=== PATIENT | female | born 1975 | race Two or more races ===

== ENCOUNTER 2017-04-11 23:36 | Emergency (ER) | payer SELFPAY ==
[2017-04-11 23:59] LABS: BILIRUBIN,URINE NEGATIVE (NEGATIVE); PH,URINE 6.5 PH (5.0-7.5)
[2017-04-12 00:01] LABS: HCG UR QUAL NEGATIVE; UA w/ MICROSCOPIC CHARGE YES
[2017-04-12 00:08] LABS: UR CULTURE IF IND NOT INDICATED
--- NOTE | 2017-04-12 01:31 | ED Physician Documentation ---
PD HPI FEMALE - Stated complaint Stated Complaint: FEMALE - Chief complaint Chief Complaint: General - History obtained from History obtained from: Patient, Family - History of Present Illness Timing - onset: How many days ago (2) Timing - duration: Days (2) Timing - details: Gradual onset, Still present Associated symptoms: Vaginal pain, Genital sore/lesion, Dysuria. No: Fever Contributing factors: No: , control Similar symptoms before: Has not had sx before Recently seen: Clinic (Seen in the clinic at [facility] today and prescribed fluconazole.) - Additional information Additional information: 41 y/o female with vaginal itching was seen at [facility] today and placed on to fluconazole for yeast vaginitis. Tonight her itching was so bad that she could not sleep and she has had her son take her here to the ED. She has had diabetes and was on some medication at one time but she has was told she could stop that medication and she does not test her sugars. She has been under some stress today with a daughter that is going away to college. Review of Systems Constitutional: denies: Fever, Chills, Myalgias Eyes: denies: Decreased vision Ears: denies: Ear pain Nose: denies: Congestion Throat: denies: Sore throat Cardiac: denies: Chest pain / pressure Respiratory: denies: Dyspnea, Cough GI: denies: Abdominal Pain, Nausea, Vomiting : reports: Dysuria, Frequency, Discharge, Other (vagnial itching) Skin: reports: Rash Musculoskeletal: denies: Neck pain, Back pain, Extremity pain Neurologic: denies: Generalized weakness, Focal weakness, Numbness PD PAST MEDICAL HISTORY - Present Medications Home Medications: Ambulatory Orders Medication Instructions Recorded Confirmed No Known Home Medications [No 04/11/17 04/11/17 Known Home Medications] - Allergies Allergies/Adverse Reactions: Allergies Allergy/AdvReac Type Severity Reaction Status Date / Time No Known Drug Allergies Allergy Verified 04/11/17 23:41 PD ED PE NORMAL - Vitals Vital signs reviewed: Yes (hypertensive ) - General General: No acute distress, Well developed/nourished - HEENT HEENT: Atraumatic, PERRL, EOMI - Neck Neck: Supple, no meningeal sign - Cardiac Cardiac: RRR, No murmur - Respiratory Respiratory: No respiratory distress, Clear bilaterally - Abdomen Abdomen: Soft, Non tender - Female Female : Digital Imaging Specialist present (Marguerite), Other (There is erythema and marked tenderness to the labia reproducing the patients symptoms ) - Back Back: No CVA TTP, No spinal TTP - Derm Derm: Normal color, Warm and dry, No rash - Extremities Extremities: No deformity, No edema Results - Vitals Vitals: Vital Signs - 24 hr 04/11/17 04/12/17 23:39 02:39 Temperature 36.5 C Heart Rate 74 58 L Respiratory 16 14 Rate Blood Pressure 138/84 H 119/71 O2 Saturation 100 100 - Labs Labs: Microbiology 04/12/17 01:25 ALEJANDRINA Preparation - Final Fluid - Vaginal Laboratory Tests 04/11/17 04/12/17 23:49 01:37 POC Whole Bld Glucose 207 H Urine Color YELLOW Urine Clarity CLEAR Urine pH 6.5 Ur Specific [place] <=1.005 Urine Protein NEGATIVE Urine Glucose (UA) NEGATIVE Urine Ketones NEGATIVE Urine Occult Blood SMALL H Urine Nitrite NEGATIVE Urine Bilirubin NEGATIVE Urine Urobilinogen 0.2 (NORMAL) Ur Leukocyte Esterase SMALL H Urine RBC 6-10 H Urine WBC 4-5 Ur Squamous Epith Cells MANY Squamous H Urine Bacteria Few Ur Microscopic Review INDICATED Urine Culture Comments NOT INDICATED Urine HCG, Qual NEGATIVE PD MEDICAL DECISION MAKING - ED course Complexity details: reviewed old records, reviewed results, re-evaluated patient , considered differential, d/w patient, d/w family ED course: 41 y/o female with yeast vaginitis with intolerable itching. She was seen in the clinic this morning and started on fluconazole and tonight the itching is so bad she has come to the ED. On exam she has irritation consistent with yeast vaginitis. A ALEJANDRINA sample was taken but after I reviewed the paperwork from the patient's visit earlier today showing yeast elements present in the urine specimen the test was not ordered. A random blood glucose was 207. I have recommended she follow up with her primary about the diabetes and tonight we provided some hydrocortisone cream for symptomatic relief. Departure - Departure Disposition: 01 Home, Self Care Clinical Impression: Yeast infection involving the vagina and surrounding area, Diabetes mellitus, new onset Condition: Stable Instructions: ED Vaginal Infec Fungal Lina, Diabetes Type 2, Diabetes Carbs Fats Protein Follow-Up: [facility] [Provider Group] Print Language: Yakut Discharge Date/Time: 04/12/17 02:44
[2017-04-12] MEDS ORDERED: MICONAZOLE 200 MG VAGINAL SUPP VG STA (01:44)
[2017-04-12] MEDS ORDERED: HYDROCORTISONE 1% CREAM 28 GM TUBE TOP STA (02:23)
[2017-04-12 02:44] VITALS: BP 119/71
== END 2017-04-12 02:44 | disposition home or self-care (01) ==
LOC: ED 23:36
DX: B37.3 Candidiasis of vulva and vagina (principal); E11.9 Type 2 diabetes mellitus without complications
CPT/HCPCS: 81001; 81025; 87220; 99283; 99284; A9270; 81003; 87086

== ENCOUNTER 2018-03-04 19:22 | Outpatient (CLI) | payer SELFPAY | END 2018-03-04 19:23 | disposition short-term general hospital (02) | LOC: EMS 19:22 | PROVIDERS: ATTEND Surgery | DX: R07.9 Chest pain, unspecified (principal); R11.0 Nausea | CPT/HCPCS: A0425; A0433 ==

== ENCOUNTER 2019-11-14 21:13 | Outpatient (CLI) | payer SELFPAY | END 2019-11-14 23:59 | disposition critical access hospital (66) | LOC: EMS 21:13 | PROVIDERS: ATTEND Surgery | DX: R07.9 Chest pain, unspecified (principal); R05 Cough | CPT/HCPCS: A0425; A0427 ==

== ENCOUNTER 2019-11-14 21:26 | Inpatient (IN) | payer SELFPAY ==
[2019-11-14] MEDS ORDERED: MORPHINE 10 MG/ML VIAL IVP STA (21:49)
[2019-11-14] MEDS ORDERED: METOPROLOL TARTRATE 50 MG TABLET PO STA (21:49)
--- NOTE | 2019-11-14 21:59 | ED Physician Documentation ---
PD HPI CHEST PAIN - Stated complaint Stated Complaint: CP, COUGH - Chief complaint Chief Complaint: Cardiac - History obtained from History obtained from: Family (44-year-old woman who has a history of coronary disease per the son. Of note the son was used for a manager sales as she declined a professional biomedical engineering internship. She has been having some episodic chest pain the last 3 days which was worse today and constant since 2 PM. It is a pain that starts in both arms and then radiates up into the anterior chest and back. It is severe at times and was especially sharp earlier this afternoon. It sounds like she is had some chest pain episodes and per the description had an angiography about a year ago at [facility], had an angioplasty done, and was told at some point she might need a bypass operation. She has been short of breath and decreased energy for the last 3 days, but the family actually thinks that is due to the snow because she cannot go outside and there is also been some family stress which the family thinks is also causative. No pedal edema or calf pain.) Review of Systems Ten Systems: 10 systems reviewed and negative Constitutional: denies: Fever, Chills Nose: denies: Rhinorrhea / runny nose, Congestion Cardiac: reports: Chest pain / pressure, Palpitations (She feels like her heart rate is slow at night). denies: Pedal edema, Calf pain Respiratory: reports: Dyspnea, Cough GI: denies: Abdominal Pain, Nausea, Vomiting, Diarrhea PD PAST MEDICAL HISTORY - Past Medical History Past Medical History: Yes Cardiovascular: Hypertension, Angina - Past Surgical History Past Surgical History: Yes Cardiovascular: Angioplasty - Present Medications Home Medications: Ambulatory Orders Medication Instructions Recorded Confirmed Amlodipine Besylate 10 mg PO DAILY 11/14/19 11/14/19 Atorvastatin Calcium 10 mg PO QPM 11/14/19 11/14/19 Isosorbide Mononitrate 10 mg PO DAILY 11/14/19 11/14/19 Nitroglycerin 0.4 mg PO DAILY 11/14/19 11/14/19 Sertraline HCl 25 mg PO DAILY 11/14/19 11/14/19 - Allergies Allergies/Adverse Reactions: Allergies Allergy/AdvReac Type Severity Reaction Status Date / Time No Known Drug Allergies Allergy Verified 11/14/19 21:37 - Social History Does the pt smoke?: Yes Smoking Status: Current every day smoker Does the pt drink ETOH?: No Does the pt have substance abuse?: No - Immunizations Immunizations are current?: Yes - POLST Patient has POLST: No PD ED PE NORMAL - Vitals Vital signs reviewed: Yes - General General: Alert and oriented X 3, No acute distress - HEENT HEENT: PERRL, EOMI - Neck Neck: Supple, no meningeal sign, No bony TTP - Cardiac Cardiac: RRR, No murmur - Respiratory Respiratory: No respiratory distress, Clear bilaterally - Abdomen Abdomen: Normal bowel sounds, Soft, Non tender - Back Back: No CVA TTP, No spinal TTP - Derm Derm: Normal color, Warm and dry - Extremities Extremities: No edema, No calf tenderness / cord - Neuro Neuro: Alert and oriented X 3, Normal speech Results - Vitals Vitals: Vital Signs - 24 hr 11/14/19 11/14/19 11/14/19 21:28 21:30 21:44 Temperature 37.2 C Heart Rate 88 79 Respiratory 12 18 Rate Blood Pressure 145/83 H 120/77 Blood Pressure 120/77 [Right] O2 Saturation 98 100 11/14/19 11/14/19 11/14/19 22:03 22:22 22:30 Temperature Heart Rate 72 65 69 Respiratory 20 15 17 Rate Blood Pressure 125/73 125/73 123/80 Blood Pressure [Right] O2 Saturation 98 99 99 11/14/19 11/14/19 11/14/19 22:45 22:50 23:25 Temperature Heart Rate 62 72 60 Respiratory 19 14 17 Rate Blood Pressure 123/80 124/73 122/74 Blood Pressure [Right] O2 Saturation 99 99 99 11/15/19 11/15/19 00:00 00:49 Temperature 37.2 C Heart Rate 62 52 L Respiratory 18 17 Rate Blood Pressure 125/60 126/70 Blood Pressure [Right] O2 Saturation 98 98 Oxygen O2 Source Room air - EKG (time done) 2131 Rate: Rate (enter#) (73), Other (this one with more pain) Rhythm: NSR [place]: Normal Intervals: Normal ND QRS: Normal Ischemia: Normal ST segments Computer interpretation: Agree with computer 2140 Rate: Rate (enter#) (77) Rhythm: NSR [place]: Normal Intervals: Normal ND QRS: Normal Ischemia: Normal ST segments Compare to prior EKG: Unchanged from prior EKG Computer interpretation: Agree with computer - Labs Labs: Laboratory Tests 11/14/19 11/14/19 11/14/19 21:59 21:59 21:59 WBC 7.7 RBC 4.41 Hgb 10.6 L Hct 34.2 L MCV 77.6 L MCH 24.0 L MCHC 31.0 L RDW 16.3 H Plt Count 247 MPV 9.5 Neut # (Auto) 4.9 Lymph # (Auto) 2.0 [place] # (Auto) 0.6 Eos # (Auto) 0.1 Baso # (Auto) 0.0 Absolute Nucleated RBC 0.00 Nucleated RBC % 0.0 Sodium 139 Potassium 3.7 Chloride 101 Carbon Dioxide 28 Anion Gap 10.0 BUN 11 Creatinine 0.7 Estimated GFR (MDRD) 92 Glucose 197 H Calcium 9.1 Total Bilirubin 0.6 AST 18 ALT 22 Alkaline Phosphatase 75 Troponin I High Sens 3.7 Total Protein 7.0 Albumin 4.0 Globulin 3.0 Albumin/Globulin Ratio 1.3 Lipase 36 PD MEDICAL DECISION MAKING - ED course ED course: During my initial evaluation she started to complain of more pain and a second EKG was done without any interval or ischemic changes. She received aspirin prior to arrival. Summary and cath report from [facility] 03/16 red and revd, Small OM Angioplatied but spams thought to be causative of prior sx. Here neg findings. Feel that sx d/t med nocplaiance and family feels stress due familty an weahter. Will place in obs for Britton All EMR times questionable d/t downtime. Departure - Departure Disposition: ED Place in Observation Clinical Impression: Chest pain Condition: Stable
[2019-11-14 22:03] LABS: BASOPHILS % (AUTO) 0.5 %; EOSINOPHILS # (AUTO) 0.1 10^3/uL (0.0-0.7); EOSINOPHILS % (AUTO) 1.8 %; HGB - HEMOGLOBIN 10.6 g/dL (12.0-16.0); LYMPHOCYTES % (AUTO) 26.5 %; MEAN CORPUSCULAR VOLUME 77.6 fL (81.0-99.0); MEAN PLATELET VOLUME 9.5 fL (7.9-10.8); MONOCYTES # (AUTO) 0.6 10^3/uL (0.0-1.0); MONOCYTES % (AUTO) 7.3 %; NEUTROPHILS # (AUTO) 4.9 10^3/uL (1.5-6.6); NEUTROPHILS % (AUTO) 63.5 %; PLT - PLATELET COUNT 247 10^3/uL (130-450); RED BLOOD COUNT 4.41 10^6/uL (4.20-5.40); RED CELL DISTRIBUTION WIDTH 16.3 % (12.0-15.0); WHITE BLOOD COUNT 7.7 x10^3/uL (4.8-10.8)
[2019-11-14 22:23] LABS: ALBUMIN/GLOBULIN RATIO 1.3 (1.0-2.2); BILIRUBIN,TOTAL 0.6 mg/dL (0.2-1.0); CALCIUM 9.1 mg/dL (8.5-10.3); CREATININE 0.7 mg/dL (0.4-1.0)
[2019-11-14] MEDS ORDERED: ISOSORBIDE MONONITRATE ER 30 MG TABLET PO ONE (22:43)
[2019-11-14] MEDS ORDERED: NITROGLYCERIN SL 0.4 MG TABLET SL ONE (22:43)
--- NOTE | 2019-11-14 22:49 | XRAY Report ---
Reason: chest pain Procedure Date: 11/14/2019 Accession Number: [id number] / [id number] Procedure: XR - Chest 1 View X-Ray CPT Code: 99026 Final Report FULL RESULT: EXAM: CHEST RADIOGRAPHY EXAM DATE: 11/14/2019 10:17 PM. CLINICAL HISTORY: Chest pain. Shortness of breath and cough. COMPARISON: None. TECHNIQUE: 1 view. FINDINGS: Lungs/Pleura: No focal opacities evident. No pleural effusion. No pneumothorax. Mediastinum: Within exam limitations, the cardiomediastinal contour is normal. Other: None. IMPRESSION: Normal single view chest. RADIA
[2019-11-15] MEDS ORDERED: HYDROcod/ACETAM 10 MG/325 MG TABLET PO PRN ×2 (00:29→01:54)
[2019-11-15] MEDS ORDERED: SODIUM CHLORIDE FLUSH 0.9% 10 ML SYRINGE IVP PRN (00:29)
--- NOTE | 2019-11-15 00:35 | HISTORY & PHYSICAL EXAMINATION ---
Chief Complaint - Chief Complaint Chief Complaint: left sided chest pain History of Present Illness - Admitted From Admitted From:: [facility] ED - History Obtained From Records Reviewed: yes History obtained from: patient and son - History of Present Illness HPI Comment/Other: Patient is a 44 y/o female who is Belarusian speaking only, with history of CAD, coronary vasospasm, DM and hyperlipidemia who presented to the ED with complain of left-sided chest pain which she described as a pressure and left arm pain. Her symptoms have been going on intermittently for the past 3 day and last about 3 minutes each time. She reports dyspnea sometimes when the pain recurs. She usually gets relief with nitroglycerin though a mild residual arm pain lingers. Today around 2pm she began experiencing the pain again while at rest. She took nitroglycerin tab four times with no significant change so EMS was called. Of note, she ran out of her imdur and amlodipine today thus did not take them. She reports using the treadmill about three times a week for 20-25 minutes each time. But she has not been able to do so in the 3 days that she has been having the chest pain. She reported nausea but no vomiting. She denied fever but reported chills. She had an EKG X2 which were unremarkable and Troponin has been negative so far. She is being admitted for further work up. She underwent a left heart cath on 03/05/2018 at [facility] after she had presented to the [facility] ED with chest pain and was transferred there for concern of possible STEMI. She was only found to have a small obtuse marginal branch which was totally occluded but felt not to be the main reason for her symptoms. This was balloon angioplastied. She was also found to have severe vasospams in the distal LAD and distal RCA which were thought to the the most likely contributors to her symptoms. As a result she was started on the nitrates and calcium channel ariel. History - Past Medical History Cardiovascular: reports: High cholesterol, Coronary artery disease, Angina, Other (coronary vasospasm) Endocrine/Autoimmune: reports: Type 2 diabetes Psych: reports: Depression, Anxiety MRSA Hx?: No Other Past Medical History: Anemia - Past Surgical History /BALLROOM DANCER: reports: Tubal ligation, Other (ovarian cyst resection) Cardiovascular: reports: Cardiac catheterization, Angioplasty - Family & Social History Family History Comment/Other: cardiac disease in father and mother Social History Notes: She lives with her family at home. She does not smoke, use alocohol or illicit drugs. - POLST Patient has POLST: No POLST Status: Full Code Meds/Allgy - Home Medications Home Medications: Ambulatory Orders Medication Instructions Recorded Confirmed Amlodipine Besylate 10 mg PO DAILY 11/14/19 11/14/19 Atorvastatin Calcium 10 mg PO QPM 11/14/19 11/14/19 Isosorbide Mononitrate 10 mg PO DAILY 11/14/19 11/14/19 Nitroglycerin 0.4 mg PO DAILY 11/14/19 11/14/19 Sertraline HCl 25 mg PO DAILY 11/14/19 11/14/19 - Allergies Allergies/Adverse Reactions: Allergies Allergy/AdvReac Type Severity Reaction Status Date / Time No Known Drug Allergies Allergy Verified 11/14/19 21:37 Review of Systems - Constitutional Constitutional: reports: Chills. denies: Fatigue, Fever - Eyes Eyes: denies: Pain, Dipolpia - Ears, Nose & Throat Ears, Nose & Throat: denies: Vertigo, Sore throat - Cardiovascular Cariovascular: reports: Chest pain, Decr. exercise tolerance. denies: Irregular heart rate, Palpitations, Edema, Lightheadedness, Syncope - Respiratory Respiratory: reports: SOB at rest. denies: Cough, Sputum production, Wheezing - Gastrointestinal Gastrointestinal: reports: Nausea. denies: Abdominal pain, Abdominal distention, Vomiting - Genitourinary Genitourinary: denies: Dysuria, Frequency, Urgency, Hematuria - Musculoskeletal Musculoskeletal: reports: Muscle pain - Integumentary Integumentary: denies: Rash, Pruritis - Neurological Neurological: denies: General weakness, Focal weakness, Headache, Dizziness - Psychiatric Psychiatric: reports: Depression, Anxiety - Endocrine Endocrine: denies: Polyuria, Polydypsia - Hematologic/Lymphatic Hematologic/Lymphatic: reports: Anemia. denies: Bruising, Petechiae Prior Level of Functionality: She is independent of activities of daily living Exam - Vital Signs Vital Signs: Vital Signs x48h Temp Pulse Resp BP BP Pulse Ox 11/14/19 22:03 72 20 125/73 98 11/14/19 21:44 79 18 120/77 100 11/14/19 21:30 120/77 11/14/19 21:28 37.2 C 88 12 145/83 H 98 - Physical Exam General Appearance: positive: Alert, Moderate distress Eyes Bilateral: positive: PERRL, EOMI ENT: positive: ENT inspection nml, No signs of dehydration Neck: positive: Nml inspection, No JVD, Trachea midline Respiratory: positive: Chest non-tender, No respiratory distress. negative: Wheezes, Rales, Rhonchi Cardiovascular: positive: Regular rate & rhythm Abdomen: positive: Non-tender, No organomegaly, Nml bowel sounds, No distention. negative: Guarding, Rebound Back: positive: Nml inspection Skin: positive: Color nml, No rash, Warm Extremities: positive: Non-tender, Full ROM, Nml appearance, No pedal edema Neurologic/Psychiatric: positive: Oriented x3, Mood/affect nml Conclusion/Plan - Problem List (1) Chest pain Conclusion/Plan: Likely multifactorial 2/2 coronary vasospasm. Worsened by not taking medications today Suspect a component of muskuloskeletal pain as well EKG unremarkable X2. Troponin negative so far. Will trend trop X2 more Will consider stress test if troponins negative Full dose aspirin. Resume imdur and amlodipine Pain management with morphine. Sublingual nitro prn. Patient given a dose om metoprolol 25mg po in the ED. Will not continue for now (2) Hyperlipidemia Conclusion/Plan: On atorvastatin 10mg po qpm (3) Diabetes mellitus Conclusion/Plan: Patient was taken off metformin 3 months ago by PCP She has since been using a diet/exercising approach Last HgA1C was 7.2. This will be repeated at next PCP visit to reassess need to resume metformin. Qualifiers: Diabetes mellitus type: type 2 (4) Depression Conclusion/Plan: On sertraline - Lab Results Fish Bones: 11/15/19 05:40 11/15/19 05:40 Core Measures - Anticipated LOS I expect patient to be DC'd or transferred within 96 hours.: Yes - DVT/VTE - Prophylaxis VTE/DVT Device ordered at admit?: Yes VTE/DVT Prophylaxis med ordered at admit?: Yes - AMI - Statin at Admit Aspirin Prescribed on Admit: Yes
[2019-11-15 01:00] LABS: BILIRUBIN,URINE NEGATIVE (NEGATIVE); GLUCOSE, URINE (UA) 100 mg/dL (NEGATIVE); KETONES,URINE (UA) NEGATIVE (NEGATIVE); LEUKOCYTE ESTERASE, URINE NEGATIVE (NEGATIVE); NITRITE,URINE NEGATIVE (NEGATIVE); OCCULT BLOOD,URINE NEGATIVE (NEGATIVE); PROTEIN,URINE NEGATIVE (NEGATIVE); UROBILINOGEN,URINE 0.2 (NORMAL) E.U./dL (NORMAL)
[2019-11-15] MEDS ORDERED: SODIUM CHLORIDE 0.9% 1,000 ML IV SCH (01:00)
[2019-11-15 01:02] LABS: CLARITY,URINE CLEAR (CLEAR)
[2019-11-15] MEDS: SODIUM CHLORIDE FLUSH 0.9% 10 ML SYRINGE IVP SCH ×3 (02:02→16:23)
[2019-11-15] MEDS: MORPHINE 2 MG/ML CARPUJECT IVP PRN ×3 (03:15→13:09)
[2019-11-15 05:50] LABS: BASOPHILS % (AUTO) 0.5 %; EOSINOPHILS # (AUTO) 0.2 10^3/uL (0.0-0.7); EOSINOPHILS % (AUTO) 2.1 %; HGB - HEMOGLOBIN 9.5 g/dL (12.0-16.0); LYMPHOCYTES # (AUTO) 2.5 10^3/uL (1.5-3.5); LYMPHOCYTES % (AUTO) 30.9 %; MEAN CORPUSCULAR HEMOGLOBIN 24.2 pg (27.0-31.0); MEAN CORPUSCULAR HGB CONC 30.9 g/dL (32.0-36.0); MEAN CORPUSCULAR VOLUME 78.3 fL (81.0-99.0); MEAN PLATELET VOLUME 9.4 fL (7.9-10.8); MONOCYTES # (AUTO) 0.7 10^3/uL (0.0-1.0); MONOCYTES % (AUTO) 8.5 %; NEUTROPHILS # (AUTO) 4.7 10^3/uL (1.5-6.6); NEUTROPHILS % (AUTO) 57.4 %; PLT - PLATELET COUNT 206 10^3/uL (130-450); RED BLOOD COUNT 3.92 10^6/uL (4.20-5.40); RED CELL DISTRIBUTION WIDTH 16.1 % (12.0-15.0); WHITE BLOOD COUNT 8.2 x10^3/uL (4.8-10.8)
[2019-11-15 06:02] LABS: CALCIUM 8.4 mg/dL (8.5-10.3); CREATININE 0.6 mg/dL (0.4-1.0)
[2019-11-15] MEDS ORDERED: ONDANSETRON 4 MG/2 ML VIAL IVP PRN (06:06)
[2019-11-15] MEDS: PANTOPRAZOLE 40 MG TABLET PO SCH (06:33)
[2019-11-15] MEDS: NITROGLYCERIN SL 0.4 MG TABLET SL PRN ×3 (07:45→07:55)
[2019-11-15] MEDS ORDERED: NITROGLYCERIN SL 0.4 MG TABLET SL ONE (07:47)
[2019-11-15] MEDS: SODIUM CHLORIDE 0.9% 1,000 ML IV SCH ×3 (08:38→23:43)
[2019-11-15] MEDS ORDERED: NITROGLYCERIN 50 MG/250 ML 50 MG/250 ML BOTTLE IV SCH (09:00)
[2019-11-15] MEDS ORDERED: ISOSORBIDE MONONITRATE 10 MG TABLET PO SCH (09:00)
[2019-11-15] MEDS: SERTRALINE 25 MG TABLET PO SCH (10:32)
[2019-11-15] MEDS: amLODIPine 5 MG TABLET PO SCH ×2 (10:33→14:53)
[2019-11-15 11:08] LABS: HB2 TOTAL 9.4 g/dL; HEMOGLOBIN A1C 0.5 g/dL
[2019-11-15] MEDS: INSULIN ASPART 300 UNIT/3 ML PEN SUBQ SCH ×3 (11:10→21:29)
--- NOTE | 2019-11-15 16:52 | PROVIDER PROGRESS NOTE ---
Hospitalist Cross-cover Note - Cross-Cover Note Cross-Cover Note: Approximately 0730 the patient had 10/10 chest pain with radiation to the left arm and nausea and retching. The daughter was at bedside who interpreted to the patient. There was another episode of chest pain at 03 100 for which she received pain medications, not sublingual nitroglycerin. Vital signs showed blood pressure 137/75, heart rate 79 sinus rhythm, O2 saturation 100% on room air. The patient was given 3 sublingual nitroglycerin with some relief and 1 dose of morphine IV. The signout was obtained from the plant technician/control room operator who had recently admitted the pt; the patient had run out of her vasodilators and has a history of known coronary vasospasm. There is also a hx of CAD with PTCA and she is a Diabetic. Physical exam: HEENT moist oral mucosa Neck no JVD in a supine position Chest clear Heart normal heart sounds, no murmur or rub Abdomen soft nontender Extremities no edema Neurologic grossly intact EKG normal sinus rhythm, within normal limits. Impression: Possible vasospastic unstable angina. Known cirinary vasospasm. Medication noncompliance (ran out of her meds) Plan: Change from Obs to inpatient admission, transfer to ICU on telemetry, cycle troponins to eval for [place], obtain Echo to evaluate for LV wall motion abno rmalities or pericardial effusion, start IV nitroglycerin drip, resume her oral vasodilators. CRITICAL CARE TIME SPENT: 45 min At 1800, the patient became unresponsive and Rapid response was called. I arrived. The RN reported that she had just given the patient Toradol 30 mg for complaints of left axillary pain and the patient started falling asleep after good pain control. The patient then would not awaken, even to sternal rub and a rapid response was called. Patient was breathing spontaneously, blood pressure 128/70, heart rate 68 sinus rhythm, afebrile, Accu-Chek glucose 166, O2 sat 100%. Physical exam: No startle reflex, no response to sternal rub, respiratory rate normal and patient in no distress, Neuro exam: Normal pupillary response to light, unable to follow commands, muscles are flaccid of upper and lower extremities, Babinski is negative, no hyperreflexia. Impression: Rule out CVA vs absence seizure Plan: Head CT stat with stroke protocol I updated the by interpretation from 3 children, outside of her room. Approx 10 min later she awoke slowly, spontaneously and spoke to her son who interpreted. Her speech was normal but quiet, it was not slurred. She said she was very tired and had "fallen asleep". When asked if she was in pain now her answer was she did not know if she was in pain. When asked where she was she stated she did not know. Muscle strength was 2/5 and equal in both upper extremities. Imp: Poss post-ictal status vs over-sedation. The son gave me more information about the pain in the left axilla: It radiates to her left scapula and is associated with shortness of breath. Imp: R/O PE, evaluate the patient for acute pulmonary embolism as the cause of both the anterior chest pain, the left axillary and scapular pain with shortness of breath, with CTA of chest today. ADDITIONAL CRITICAL CARE TIME SPENT: 45 min. TOTAL: 90 min today.
--- NOTE | 2019-11-15 16:59 | PHARMACY PROGRESS NOTE ---
- Best Possible Medication History Admit Date and Time: 11/15/19 0801 Processed by: Pharmacy Medication History completed: Yes Patient Interview: Completed Secondary Source(s): Physician records, Pharmacy records, Insurance records As the person ultimately responsible for medication therapy, providers are able to order a medication from an existing home medication list in [facility] via the "Reconcile Routine" prior to Confirmation of that medication by community support specialist. Such practice is discouraged except when the physician, in their clinical judgment, deems that a medical need exists for a medication without regard to previous use.
[2019-11-15] MEDS: KETOROLAC 30 MG/ML VIAL IVP PRN (17:34)
[2019-11-15] MEDS ORDERED: IOVERSOL 320 100 ML VIAL IVP ONE ×2 (18:13→18:54)
--- NOTE | 2019-11-15 18:36 | CT Report ---
Reason: LOC Procedure Date: 11/15/2019 Accession Number: [id number] / [id number] Procedure: CT - Head W/O Stroke Protocol CPT Code: Final Report FULL RESULT: EXAM: CT HEAD EXAM DATE: 11/15/2019 06:24 PM. CLINICAL HISTORY: Sudden loss of consciousness. COMPARISON: None. TECHNIQUE: Multiaxial CT images were obtained from the foramen magnum to the vertex. Reformats: Sagittal and coronal. IV contrast: None. In accordance with CT protocol optimization, one or more of the following dose reduction techniques were utilized for this exam: automated exposure control, adjustment of mA and/or KV based on patient size, or use of iterative reconstructive technique. FINDINGS: Parenchyma: No intraparenchymal hemorrhage. No evidence of mass, midline shift, or CT findings of acute infarction. Leyva-white differentiation is distinct. Extraaxial Spaces: Normal for age. No subdural or epidural collections identified. Ventricles: Normal in size and position. Sinuses and Orbits: Imaged paranasal sinuses, orbits, and mastoids show no significant abnormality. Bones: No evidence of fracture or calvarial defect. Other: None. IMPRESSION: No CT evidence for acute intracranial abnormality. Note that these findings do not preclude the possibility of small or early ischemic infarct for which brain MRI is more sensitive. RADIA The critical test notification system was initiated by Dr. Fazal Blancas at 06:32 PM on 11/15/2019. The above critical test findings were discussed with Dayami Winston by Dr. Fazal Blancas at 06:35 PM on 11/15/2019.
[2019-11-15] MEDS ORDERED: ATORVASTATIN 10 MG TABLET PO SCH (21:00)
--- NOTE | 2019-11-15 21:26 | CT Report ---
Reason: Chest pain with SOB Procedure Date: 11/15/2019 Accession Number: [id number] / [id number] Procedure: CT - ANGIO CHEST W/WO CPT Code: Final Report FULL RESULT: EXAM: CT ANGIOGRAM CHEST EXAM DATE: 11/15/2019 06:32 PM. CLINICAL HISTORY: Chest pain with SOB. COMPARISON: None. TECHNIQUE: Routine helical imaging was performed through the chest in the pulmonary arterial phase. IV Contrast: OPTI 320 80ML. Reconstructions: Coronal 3-D MIP reconstructions.Sagittal and coronal. In accordance with CT protocol optimization, one or more of the following dose reduction techniques were utilized for this exam: automated exposure control, adjustment of mA and/or KV based on patient size, or use of iterative reconstructive technique. FINDINGS: Pulmonary Arteries: Diagnostic quality: Adequate through the segmental arteries. No evidence for acute or chronic pulmonary emboli. RV/LV is within normal limits. There is no interventricular septal bowing. There is no reflux of contrast material in the IVC. Lungs/Pleura: No consolidation, nodules, or edema. No effusions or pneumothorax. Mediastinum: Normal. No cardiac enlargement or adenopathy. Thoracic Aorta: Unremarkable. Upper Abdomen: Unremarkable. Other: None. IMPRESSION: Normal pulmonary CT angiogram. No pulmonary emboli. RADIA
[2019-11-16] MEDS: KETOROLAC 30 MG/ML VIAL IVP PRN (01:20)
[2019-11-16] MEDS: SODIUM CHLORIDE FLUSH 0.9% 10 ML SYRINGE IVP SCH ×2 (01:20→08:15)
[2019-11-16 05:47] LABS: BASOPHILS % (AUTO) 0.4 %; EOSINOPHILS # (AUTO) 0.1 10^3/uL (0.0-0.7); EOSINOPHILS % (AUTO) 1.9 %; HGB - HEMOGLOBIN 9.3 g/dL (12.0-16.0); LYMPHOCYTES # (AUTO) 2.2 10^3/uL (1.5-3.5); LYMPHOCYTES % (AUTO) 29.7 %; MEAN CORPUSCULAR HEMOGLOBIN 24.5 pg (27.0-31.0); MEAN CORPUSCULAR HGB CONC 30.9 g/dL (32.0-36.0); MEAN CORPUSCULAR VOLUME 79.4 fL (81.0-99.0); MEAN PLATELET VOLUME 9.7 fL (7.9-10.8); MONOCYTES # (AUTO) 0.5 10^3/uL (0.0-1.0); NEUTROPHILS # (AUTO) 4.5 10^3/uL (1.5-6.6); NEUTROPHILS % (AUTO) 60.6 %; PLT - PLATELET COUNT 192 10^3/uL (130-450); RED BLOOD COUNT 3.79 10^6/uL (4.20-5.40); RED CELL DISTRIBUTION WIDTH 16.5 % (12.0-15.0); WHITE BLOOD COUNT 7.5 x10^3/uL (4.8-10.8)
[2019-11-16 06:01] LABS: CALCIUM 8.5 mg/dL (8.5-10.3); CREATININE 0.6 mg/dL (0.4-1.0)
[2019-11-16 06:25] LABS: PHOSPHORUS 3.6 mg/dL (2.5-4.6)
[2019-11-16] MEDS: PANTOPRAZOLE 40 MG TABLET PO SCH (07:05)
[2019-11-16] MEDS: INSULIN ASPART 300 UNIT/3 ML PEN SUBQ SCH ×2 (07:57→11:42)
[2019-11-16] MEDS: amLODIPine 5 MG TABLET PO SCH (08:15)
[2019-11-16] MEDS: SERTRALINE 25 MG TABLET PO SCH (08:15)
[2019-11-16] MEDS ORDERED: ISOSORBIDE MONONITRATE ER 30 MG TABLET PO SCH ×2 (09:00→17:00)
[2019-11-16] MEDS ORDERED: IBUPROFEN 800 MG TABLET PO PRN (09:09)
[2019-11-16] MEDS ORDERED: FLUoxetine 10 MG CAPSULE PO SCH (10:00)
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
--- NOTE | 2019-11-16 12:48 | DISCHARGE SUMMARY ---
Discharge Summary Admit Date: 11/15/19 Discharge Date: 11/16/19 Discharging Provider: Dr Dayami Winston Primary Care Provider: Dr Magali Graves Code Status: Attempt Resuscitation Condition at Discharge: Stable Discharge Disposition: 01 Home, Self Care - DIAGNOSES Admission Diagnoses: (1) Chest pain (2) Hyperlipidemia (3) Diabetes mellitus (4) Depression Discharge Diagnoses with Status of Each Condition: See below - HPI History of Present Illness: From the admission H&P of Dr Venu Brownlee: Patient is a 44 y/o female who is [place]ore[place] speaking only, with history of CAD, coronary vasospasm, DM and hyperlipidemia. She underwent a left heart cath on 03/05/2018 at [facility] after she had presented to the [facility] ED with chest pain and was transferred there for concern of possible STEMI. She was only found to have a small obtuse marginal branch which was totally occluded but felt not to be the main reason for her symptoms. This was balloon angioplastied. She was also found to have severe vasospams in the distal LAD and distal RCA which were thought to the the most likely contributors to her symptoms. As a result she was started on the nitrates and calcium channel ariel. Now she presented to the ED with complaint of left-sided chest pain which she described as a pressure and left arm pain. Her symptoms have been going on intermittently for the past 3 day and last about 3 minutes each time. She reports dyspnea sometimes when the pain recurs. She usually gets relief with nitroglycerin though a mild residual arm pain lingers. Today around 2pm she began experiencing the pain again while at rest. She took nitroglycerin tab four times with no significant change so EMS was called. Of note, she ran out of her imdur and amlodipine today thus did not take them. She reports using the treadmill about three times a week for 20-25 minutes, but she has not been able to do so in the 3 days that she has been having the chest pain. She reported nausea but no vomiting. She denied fever but reported chills. She had an EKG in the ER, which was unremarkable and Troponin has been negative so far. She is being placed in Observation status for further work up of chest pain. - HOSPITAL COURSE Hospital Course: 1) Unstable angina At 0300, she had another episode of CP for which she got morphine. At 0730 she had another episode of CP for which the Hospitalist was called, she got 3 sl NTG with slight relief and she was transferred into the ICU for unstable angina and admitted to Inpatient status. She was put on a Nitroglycerin drip, which gave her relief of pain. An EKG showed no ischemic changes and her troponins were not elevated. By the following day, the NTG drip was weaned to off and her oral Isosorbide and Amlodipine were restarted and she was able to be discharged home in stable condition. 2) History of coronary vasospasm Her presumptive diagnosis was angina developing from being off her vasodilators Isordil and Amlodipine. 3) Noncompliance with medication regimen She admitted that she had run out of her meds more than one day previously. 4) Chest wall pain There was a different pain recurring in the left chest/axillary area which was tender to palpation and was also pleuritic. She underwent a CTA of chest which showed no pulmonary embolism. An Echo was also done that showed no pericardial effusion, and normal LV and RV sizes and function. She received iv Toradol then oral NSAIDs with relief of this pain. 5) Unresponsive episode After moving into the ICU, and having just received a Toradol dose (not narcotic dose) iv, she was noted to be non-communicative and a Rapid Response Code was called. She was not responding to sternal rub, arms and legs were flaccid, she had no startle reflex and was hyporeflexic, despite breathing spontaneously, having normal blood pressure 128/70, heart rate 68 sinus rhythm, afebrile, Accu- Chek was glucose 166, and O2 sat 100%. She underwent a STAT head CT which ruled out stroke. She awoke after about 1 hour, spoke to the family, knew where she was but was lethargic. The son reported that she has had 2 other episodes like this one, once in an ambulance trip and once while hospitalized at [facility]. We requested records and received them from [facility], and there was no description of unresponsiveness during the last admission. She was ad vised to have work-up by a Neurologist and told she may NOT drive a vehicle because of these recurrent unresponsive spells. This advice was given to her with and several adult children in the room, and she voiced understanding. 6) Diabetes mellitus Her A1c was 7.0. She was on a diabetic diet with sliding scale Insulin coverage while here. Oral meds were advised to be resumed after discharge. - ALLERGIES Allergies/Adverse Reactions: Allergies Allergy/AdvReac Type Severity Reaction Status Date / Time No Known Drug Allergies Allergy Verified 11/14/19 21:37 - MEDICATIONS Home Medications: Ambulatory Orders Medication Instructions Recorded Confirmed Amlodipine Besylate 10 mg PO DAILY #30 tablet 11/16/19 Aspirin [Aspirin EC] 81 mg PO DAILY #30 tablet.dr 11/16/19 Atorvastatin Calcium 20 mg PO QPM #30 tablet 11/16/19 Fluoxetine HCl 20 mg PO DAILY #30 capsule 11/16/19 Isosorbide Mononitrate [Isosorbide 60 mg PO DAILY #30 tab.er.24h 11/16/19 Mononitrate ER] Nitroglycerin 0.4 mg PO DAILY #100 tab.subl 11/16/19 - PHYSICAL EXAM AT DISCHARGE General Appearance: positive: No acute distress, Alert Eyes Bilateral: positive: Normal inspection, EOMI ENT: positive: ENT inspection nml, No signs of dehydration Neck: positive: Nml inspection, No JVD Respiratory: positive: No respiratory distress, Breath sounds nml Cardiovascular: positive: Regular rate & rhythm, No murmur Abdomen: positive: Non-tender, No distention Back: positive: Nml inspection Skin: positive: Color nml Extremities: positive: No pedal edema Neurologic/Psychiatric: positive: Oriented x3, Other (Non-focal) - LABS Result Diagrams: 11/16/19 05:40 11/16/19 05:40 - DIAGNOSTIC IMAGING Diagnostic Imaging Results: Final report reviewed - FOLLOW UP Follow Up: See PCP in 5-10 days for hospital follow-up and for a referral to neurology. - TIME SPENT Time Spent in Discharge (Minutes): 60
[2019-11-16 13:31] VITALS: BP 117/63
[2019-11-16] MEDS ORDERED: ATORVASTATIN 10 MG TABLET PO SCH (21:00)
== END 2019-11-16 13:32 | disposition home or self-care (01) | DRG 303 ==
LOC: EDUNIT# → ED 21:26 → OBS 11-15 00:30 → OBSVTOIN 11-15 08:01 → ICU 11-15 08:26
PROVIDERS: ADMIT Internal Medicine; ATTEND Internal Medicine
DX: I25.110 Atherosclerotic heart disease of native coronary artery with unstable angina pectoris (principal); I25.111 Atherosclerotic heart disease of native coronary artery with angina pectoris with documented spasm; E78.5 Hyperlipidemia, unspecified; E11.9 Type 2 diabetes mellitus without complications; F32.9 Major depressive disorder, single episode, unspecified; F41.9 Anxiety disorder, unspecified; M79.622 Pain in left upper arm; R06.02 Shortness of breath; R55 Syncope and collapse; T46.1X6A Underdosing of calcium-channel blockers, initial encounter; Y92.009 Unspecified place in unspecified non-institutional (private) residence as the place of occurrence of the external cause; I10 Essential (primary) hypertension; Z91.128 Patient's intentional underdosing of medication regimen for other reason; Z79.82 Long term (current) use of aspirin; Z98.61 Coronary angioplasty status
CPT/HCPCS: 36415; 70450; 71045; 71275; 80048; 80053; 81003; 83036; 83690; 83735; 84100; 84484; 85025; 87150; 93005; 93306; 96361; 96374; 96376; 97161; 99285; A9270; G0378; Q9967; 81001; 87086

== ENCOUNTER 2020-01-17 21:11 | Outpatient (CLI) | payer SELFPAY | END 2020-01-17 21:12 | disposition short-term general hospital (02) | LOC: EMS 21:11 | PROVIDERS: ATTEND Surgery | DX: R07.9 Chest pain, unspecified (principal) | CPT/HCPCS: A0425; A0427 ==

== ENCOUNTER 2021-05-25 08:39 | Outpatient (CLI) | payer SELFPAY ==
--- NOTE | 2021-05-25 14:45 | XRAY Report ---
PROCEDURE: Tib/Fib RT INDICATIONS: TRAUMATIC ECCAMOSIS OF LOWER LEG-RIGHT TECHNIQUE: 2 views of the tibia and fibula were acquired. COMPARISON: None FINDINGS: Bones: No fractures or dislocations. No suspicious bony lesions. Soft tissues: No suspicious soft tissue calcifications or masses. IMPRESSION: No fracture or foreign body seen. Reviewed by: Leon Mcallister MD on 05/25/2021 2:43 PM PDT Approved by: Leon Mcallister MD on 05/25/2021 2:43 PM PDT Station ID: [id number]
== END 2021-05-25 08:40 | disposition home or self-care (01) ==
LOC: DI 08:39
PROVIDERS: ATTEND Family Medicine
DX: S80.11XA Contusion of right lower leg, initial encounter (principal)

== ENCOUNTER 2022-12-21 21:47 | Outpatient (CLI) | payer MEDICAID, OTHER | END 2022-12-21 21:48 | disposition critical access hospital (66) | LOC: EMS 21:47 | DX: R07.9 Chest pain, unspecified (principal); R10.31 Right lower quadrant pain; R10.32 Left lower quadrant pain; R11.0 Nausea; V49.40XA Driver injured in collision with unspecified motor vehicles in traffic accident, initial encounter; Y92.413 State road as the place of occurrence of the external cause; Y99.8 Other external cause status | CPT/HCPCS: A0425; A0427 ==

== ENCOUNTER 2022-12-21 22:11 | Emergency (ER) | payer MEDICAID, OTHER ==
[2022-12-21 22:49] LABS: BASOPHILS # (AUTO) 0.1 10^3/uL (0.0-0.1); BASOPHILS % (AUTO) 0.8 %; EOSINOPHILS # (AUTO) 0.2 10^3/uL (0.0-0.7); EOSINOPHILS % (AUTO) 2.6 %; HGB - HEMOGLOBIN 11.6 g/dL (12.0-16.0); LYMPHOCYTES # (AUTO) 2.2 10^3/uL (1.5-3.5); LYMPHOCYTES % (AUTO) 33.2 %; MEAN CORPUSCULAR HEMOGLOBIN 23.9 pg (27.0-31.0); MEAN CORPUSCULAR HGB CONC 30.5 g/dL (32.0-36.0); MEAN CORPUSCULAR VOLUME 78.2 fL (81.0-99.0); MEAN PLATELET VOLUME 10.8 fL (7.9-10.8); MONOCYTES # (AUTO) 0.5 10^3/uL (0.0-1.0); NEUTROPHILS # (AUTO) 3.7 10^3/uL (1.5-6.6); NEUTROPHILS % (AUTO) 56.1 %; PLT - PLATELET COUNT 165 10^3/uL (130-450); RED BLOOD COUNT 4.86 10^6/uL (4.20-5.40); RED CELL DISTRIBUTION WIDTH 24.2 % (12.0-15.0); WHITE BLOOD COUNT 6.5 x10^3/uL (4.8-10.8)
[2022-12-21 22:50] LABS: SLIDE REVIEW? Indicated
[2022-12-21 23:03] LABS: ALBUMIN 4.5 g/dL (3.2-5.5); ALBUMIN/GLOBULIN RATIO 1.5 (1.0-2.2); BILIRUBIN,TOTAL 1.1 mg/dL (0.2-1.0); CALCIUM 9.3 mg/dL (8.5-10.3); CREATININE 0.7 mg/dL (0.4-1.0); POTASSIUM 3.3 mmol/L (3.5-5.0); TOTAL PROTEIN 7.6 g/dL (6.7-8.2)
[2022-12-21 23:13] LABS: PLATELET ESTIMATE, MANUAL NORMAL (130-450,000) (NORMAL); PLATELET MORPHOLOGY NORMAL APPEARANCE (NORMAL); RBC MORPHOLOGY (MULTIPLE) 2+ ANISOCYTOSIS (NORMAL); WBC MORPHOLOGY (MULTIPLE) NORMAL APPEARANCE (NORMAL)
--- NOTE | 2022-12-21 23:18 | XRAY Report ---
PROCEDURE: Chest 1 View X-Ray INDICATIONS: CP TECHNIQUE: One view of the chest was acquired. COMPARISON: None. FINDINGS: Surgical changes and devices: None. Lungs and pleura: No pleural effusions or pneumothorax. Lungs are clear. Mediastinum: Mediastinal contours appear normal. Heart size is normal. Bones and chest wall: No suspicious bony lesions. Overlying soft tissues appear unremarkable. IMPRESSION: 1. No acute cardiopulmonary disease. Reviewed by: Otis Stephenson MD on 12/21/2022 11:17 PM [facility] Approved by: Otis Stephenson MD on 12/21/2022 11:17 PM [facility] Station ID: [id number]
[2022-12-21] MEDS ORDERED: iohexoL-300 100 ML VIAL ONE (23:36)
[2022-12-21 23:43] LABS: BILIRUBIN,URINE NEGATIVE (NEGATIVE); GLUCOSE, URINE (UA) NEGATIVE (NEGATIVE); KETONES,URINE (UA) NEGATIVE (NEGATIVE); LEUKOCYTE ESTERASE, URINE NEGATIVE (NEGATIVE); NITRITE,URINE NEGATIVE (NEGATIVE); OCCULT BLOOD,URINE NEGATIVE (NEGATIVE); PROTEIN,URINE NEGATIVE (NEGATIVE); UROBILINOGEN,URINE 0.2 (NORMAL) E.U./dL (NORMAL)
[2022-12-21 23:44] LABS: CLARITY,URINE CLEAR (CLEAR)
[2022-12-21 23:46] LABS: HCG UR QUAL NEGATIVE
[2022-12-22] MEDS ORDERED: POTASSIUM CHLORIDE 20 MEQ TABLET PO STA (00:44)
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
[2022-12-22 00:56] VITALS: BP 118/75
== END 2022-12-22 00:55 | disposition home or self-care (01) ==
LOC: EDUNIT# → ED 22:11
DX: E87.6 Hypokalemia (principal); R07.9 Chest pain, unspecified; V89.2XXA Person injured in unspecified motor-vehicle accident, traffic, initial encounter; F17.200 Nicotine dependence, unspecified, uncomplicated
CPT/HCPCS: 36415; 71045; 80053; 81003; 81025; 84484; 85025; 93005; 99283; 99284; A9270; Q9967; 81001; 87086